=== PATIENT | female | born 1995 | race African-American/Black ===

== ENCOUNTER 2020-04-01 18:24 | Emergency (ER) | payer SELFPAY ==
[2020-04-01 18:26] VITALS: BP 151/105; PULSE 78; RESP 20; TEMP 37; O2SAT 99
--- NOTE | 2020-04-01 18:43 | PC.NURSE ---
Pt states she bent over and had extreme lower back pain since yesterday. Pt took two aleive at 1600 with no relief. Pt states she has pain with movement.
--- NOTE | 2020-04-01 19:05 | ED_ITS ---
HPI - Back Pain/Injury General Chief Complaint: Back Pain/Injury Stated Complaint: back pain Time Seen by Provider: 04/01/20 19:03 History of Present Illness HPI Narrative: Low back pain since yesterday. Located in the midline. No radiation. Started after bending over. Mild improvmenet with rest naproxen and heat. No weakness, numbness, fever, urinary symptoms. Related Data Allergies Allergy/AdvReac Type Severity Reaction Status Date / Time ibuprofen [From Motrin] Allergy Hives Verified 04/01/20 19:34 Review of Systems Review of Systems: All systems reviewed & are unremarkable except as noted in HPI and below Constitutional: Constitutional: Denies fever(s) Cardiovascular: Cardiovascular: Denies chest pain Respiratory: Respiratory: Denies dyspnea Gastrointestinal: Gastrointestinal: Denies abdominal pain and Denies nausea Genitourinary: Genitourinary: Denies hematuria and Denies dysuria Musculoskeletal: Musculoskeletal: Reports back pain Integumentary/Breasts: Skin/Breast: Denies rash Neurologic: Denies numbness and Denies weakness Endocrine: Endocrine: Denies polydipsia and Denies polyuria Exam Const: General: no acute distress and alert Nutritional Appearance: obese Orientation/consciousness: patient oriented x3 HENMT: Head: normal to inspection Resp: Effort & Inspection: normal respiratory effort GI: Other: ND NT : General: Yes no CVA tenderness Back/Spine/Pelvis: Other: Mild lumbar paraspinal and midline tenderness Skin: General skin exam: normal color Neuro: General: patient oriented x3, moves all extremities and no focal motor deficits Speech: normal speech Gait exam (Neuro): Normal gait present Extrem: General: normal to inspection Course Vital Signs Vital signs: Vital Signs Temperature 37.0 C 04/01/20 18:26 Pulse Rate 78 04/01/20 18:26 Respiratory Rate 20 04/01/20 18:26 Blood Pressure 151/105 H 04/01/20 18:26 Pulse Oximetry 99 04/01/20 18:26 Temperature 37.0 C 04/01/20 18:26 Pulse Rate 79 04/01/20 20:43 Respiratory Rate 18 04/01/20 20:43 Blood Pressure 151/80 H 04/01/20 20:43 Pulse Oximetry 96 04/01/20 20:43 MDM - Back Pain/Injury MDM Narrative Medical decision making narrative: She has no red flags or high risk findings to indicate that imaging is needed. I will plan to treat symptomatically. Differential Diagnosis Differential diagnosis: Likely sciatica and other (strain) Discharge Plan Discharge Clinical Impression: Acute low back pain Qualifiers: Back pain laterality: midline Sciatica presence: without sciatica Qualified Code(s): M54.5 - Low back pain Patient Disposition: Home, Self-Care Condition: Stable Instructions: Acute Low Back Pain (ED) Prescriptions: New cyclobenzaprine 10 mg tablet 10 mg PO TID PRN (Reason: muscle spasm) Qty: 20 RF: 0 hydrocodone-acetaminophen [[place]] 5-325 mg tablet 1 tablet PO Q6H PRN (Reason: pain) Qty: 5 RF: 0 Follow-up/Referrals: PHYSICIAN,TRANSPORTATION OPERATIONS MANAGER [Primary Care Provider] - Stand Alone Forms: Work/School Release IP Discharge Date/Time: 04/01/20 20:56
[2020-04-01 19:30] VITALS: BP 149/88; PULSE 82; RESP 16; O2SAT 99
[2020-04-01 20:43] VITALS: BP 151/80; PULSE 79; RESP 18; O2SAT 96
== END 2020-04-01 20:56 | disposition home or self-care (01) ==
PROVIDERS: Emergency Provider Emergency Medicine
DX: M54.5 Low back pain (principal)
CPT/HCPCS: 96372; 99283; J3360